=== PATIENT | male | born 1990 | race Caucasian/White ===

== ENCOUNTER 2022-12-11 11:22 | Emergency (ER) | payer SELFPAY ==
[2022-12-11 11:23] VITALS: BP 135/92; PULSE 95; RESP 16; TEMP 36.8; O2SAT 98; BMI 24.5
--- NOTE | 2022-12-11 11:55 | US_ITS ---
STUDY: SCROTUM ULTRASOUND REASON FOR EXAM: Male, 32 years old. R test pain TECHNIQUE: Ultrasound evaluation of the scrotum was performed with color Doppler and static brooks-scale imaging. COMPARISON: None. FINDINGS: RIGHT TESTICLE INTRATESTICULAR: There is a normal size of the right testicle. The right testicle measures 5.2 x 3.2 x 3 cm. There is a homogenous echotexture. There is normal arterial and normal venous vascularity. There is no demonstrated right testicular mass or cyst. EXTRATESTICULAR: The epididymis is normal in size but heterogeneous. The epididymis head measures 1 cm. There is increased (hyperemic) vascularity of the epididymis. There is no demonstrated epididymal cystic structure. There is no demonstrated hydrocele. There is no demonstrated varicocele. There is no demonstrated extratesticular mass or cyst. LEFT TESTICLE INTRATESTICULAR: There is a normal size of the left testicle. The left testicle measures 5.1 x 3.5 x 3.2 cm. There is a homogenous echotexture. There is normal arterial and normal venous vascularity. There is no demonstrated left testicular mass or cyst. EXTRATESTICULAR: The epididymis is normal in size. The epididymis head measures 1.1 cm. There is normal vascularity of the epididymis. There is no demonstrated epididymal cystic structure. There is a small hydrocele. There is no demonstrated varicocele. There is no demonstrated extratesticular mass or cyst. US/Testicular with Arterial Flow IMPRESSION: Heterogeneous right epididymis with increased vascularity suggesting epididymitis. Sonographically normal testicles, no sonographic evidence of mass or torsion Small left hydrocele Electronically Signed: Thai Molina MD at 13:20 EDT ,
--- NOTE | 2022-12-11 12:19 | EX.ED.GUMALE ---
HPI History of Present Illness Chief Complaint: Male Pain/Injury Detail of Chief Complaint: testicle pain Informant: patient Pain Onset: Days (2) Context: Gradual Onset Timing: Continuous Current Severity: Severe Maximum Severity: Severe Worsened by: movement, palpation Relieved by: remaining still Urinary Symptoms Genitourinary Symptoms: No Symptoms Related History Sexually: Inactive (for about past year) STD: No Epididymitis: No Bladder/Kidney Infection: No Prostate Infection: No Narrative Narrative: Patient has had gradual onset of aching in his right testicle and right lower quadrant simultaneously for the past couple days much worse today. Cannot tell if there is a difference between wearing briefs or not, any movement of the affected testicle on the right is painful. Sexually inactive, semen was discolored yesterday, no blood. No urinary symptoms. No pain into the side or back. No nausea, vomiting, fevers or chills. No recent trauma/injury. PFSH PFSH Medical History no medical history no medical history Home Medications doxycycline monohydrate 100 mg capsule 100 mg PO BID #20 CAPSULES 12/11/22 [Rx Last Taken Unknown] Allergy/AdvReac Type Severity Reaction Status Date / Time amoxicillin Allergy Rash Verified 12/11/22 11:24 Social History Smoking Status: Unknown if ever smoked ROS ROS ED Constitutional Constitutional ED: Denies chills or fever(s) Gastrointestinal Gastrointestinal: Reports abdominal pain; Denies diarrhea, hematochezia, melena, nausea or vomiting Genitourinary Genitourinary ED: Reports as per HPI and scrotal pain; Denies dysuria, hematuria, low back pain or urinary frequency Musculoskeletal Musculoskeletal: Denies back pain or myalgias Integumentary Denies abscess or rash Neurologic Neurologic: Denies headache(s), paresthesias or weakness EXAM Physical Exam Const Vital Signs: 12/11/22 11:23 12/11/22 13:57 Temperature 98.2 F Temperature Source Temporal Pulse Rate 95 81 Respiratory Rate 16 14 Blood Pressure 135/92 H 133/76 H Blood Pressure Mean 106 95 Pulse Ox 98 97 Oxygen Delivery Method Room Air Room Air Positive well nourished and well developed General Appearance ED: well developed and NAD HEENT Reports moist mucous membranes normocephalic and atraumatic Eyes PERRL and EOMs intact bilaterally Resp normal respiratory effort Cardio regular rate, regular rhythm and no murmurs Rate: Negative for tachycardic GI GI Narrative: Mild tenderness distal right lower quadrant near the groin without any inguinal lymphadenopathy or distention of the abdomen. Otherwise benign abdomen, no guarding or rebound no distention normal bowel sounds present. Narrative: Very tender posterior right testicle. No deformity. No discoloration of the scrotum, no blue dot sign, no obvious swelling. Intact cremasterics. No inguinal lymphadenopathy. Penis normal. Back/Spine no CVA tenderness Extremity normal to inspection General Extremety ED: Negative for edema General Extremity: Negative for edema Neuro oriented x3, CN's II-XII intact bilaterally, no focal motor deficits and no sensory deficits noted Psych mental status grossly normal Mood & Affect: anxious MDM MDM MDM Narrative Medical decision making narrative: Patient's history and exam are most consistent with right epididymitis. However given the amount of pain he is in, I obtained an ultrasound, I reviewed the images and the results and agree with them, basically consistent with epididymitis on the right no signs of torsion. I think he is having pain radiating up into his right lower abdomen. He was given Toradol and that helped. We will place him on doxycycline to cover E. coli, his urinalysis otherwise unremarkable, close outpatient follow-up advised. Lab Data Attestation: I reviewed the patient's lab results. Labs: Laboratory Results - last 24 hr 12/11/22 13:50 Urine Color Yellow Urine Clarity Clear Urine pH 6.5 Ur Specific [place] 1.005 Urine Protein Negative Urine Glucose (UA) Normal Urine Ketones Negative Urine Occult Blood 25 H Urine Nitrite Negative Urine Bilirubin Negative Urine Urobilinogen Normal Ur Leukocyte Esterase Negative Urine RBC 0 SEEN Urine WBC 0 SEEN Ur Squamous Epith Cells 0 SEEN Urine Bacteria 0 SEEN Urine Mucus 0 SEEN Radiography Diagnostic Testing: Clinical Impression(s) from Imaging Studies Testicular Ultrasound 12/11/22 11:55 IMPRESSION: Heterogeneous right epididymis with increased vascularity suggesting epididymitis. Sonographically normal testicles, no sonographic evidence of mass or torsion Small left hydrocele Electronically Signed: Thai Molina MD at 13:20 EDT Reading Location ID and State: [facility] / [place] , Service support , Discharge Plan Triage Chief Complaint: Male Pain/Injury ED Provider: Stone Teran Dx/Rx/DC Orders Clinical Impression: Epididymitis, right Instructions: ED Epididymitis Prescriptions: New doxycycline monohydrate 100 mg capsule 100 mg PO BID Qty: 20 0RF Primary Care Provider: Care Physician,No Primary Referrals: Pako Cronin MD [Med Staff - Active Staff] - 1 Week if not improving Care Physician,No Primary [Primary Care Provider] - Activity Restrictions/Additional Instructions: Ibuprofen or Aleve as needed for pain. Oftentimes scrotal support in the form of tighter fitting underwear helps the pain, but what ever feels better is okay. Disposition Disposition: Home, Self Care
[2022-12-11] MEDS: Ketorolac 60 MG/2 ML Vial IM (12:46)
[2022-12-11 13:57] VITALS: BP 133/76; PULSE 81; RESP 14; O2SAT 97
[2022-12-11 13:59] LABS: Bacteria 0 SEEN /hpf (None Seen); Mucous, Urine 0 SEEN /hpf (<or=2+); Red Blood Cells-Urine 0 SEEN /hpf (0-5); Squamous Epithelial Cells - UA 0 SEEN /hpf (0-5); White Blood Cells 0 SEEN /hpf (0-5)
[2022-12-11 14:02] LABS: Color, Urine Yellow (Yellow); Glucose, Dipstick Normal (Normal); Ketone-Dipstick Negative (Negative); Leukocyte Esterase-Dipstick Negative /ul (Negative); Nitrite-Dipstick Negative (Negative); Occult Blood-Urine 25 /ul (Negative); Protein-Dipstick Negative (Negative); Specific Gravity, Urine 1.005 (1.002-1.030); Urine Bilirubin Dipstick Negative (Negative); Urine Clarity Clear (Clear); Urine Urobilinogen Normal (Normal); Urine pH 6.5 (5.0 - 8.0)
[2022-12-11] MEDS: Doxycycline 100 MG CAPSULE PO (14:30)
[2022-12-11 14:47] VITALS: BP 129/85; PULSE 70; RESP 16; O2SAT 97
== END 2022-12-11 14:47 | disposition home or self-care (01) ==
PROVIDERS: Emergency Provider Emergency Medicine; Visit Provider Emergency Medicine
DX: N45.1 Epididymitis (principal)
CPT/HCPCS: 76870; 81001; 93976; 96372; 99283